=== PATIENT | female | born 1975 | race African-American/Black ===

== ENCOUNTER 2017-03-07 11:29 | Emergency (ER) | payer MEDICAID ==
[~2017-03-07] VITALS: Ht 170.2 cm; Wt 79.0 kg
[~2017-03-07 11:29] MED LIST: DOCU-138 PO; IBUP-1510 PO; LOSA50TA20 PO; OMEG1CAP17 PO
[2017-03-07] MEDS ORDERED: CYCL5TAB PO (11:38)
[2017-03-07] MEDS ORDERED: LISI1TAB9 PO (11:38)
[2017-03-07] MEDS ORDERED: GABA-531 PO (11:38)
[2017-03-07] MEDS ORDERED: SERT25TA74 PO (11:38)
[2017-03-07] MEDS ORDERED: ONDANSETRON HCL 4MG/2ML VIAL IV STA (11:48)
[2017-03-07] MEDS ORDERED: SODIUM CHLORIDE 0.9% 1,000 ML IV ONE (11:48)
[2017-03-07 12:15] LABS: BASOPHILS % 0.4 % (0.0-2.0); DIFFERENTIAL COMMENT 0; EOSINOPHILS % 0.6 % (0.0-5.0); HEMATOCRIT. 38.5 % (36.0-48.0); HEMOGLOBIN. 13.1 g/dL (12.0-16.0); LYMPHOCYTES % 18.4 % (20.0-50.0); MEAN CORPUSCULAR HEMOGLOBIN 27.1 pg (28.0-32.0); MEAN CORPUSCULAR VOLUME 79.7 fL (81.0-99.0); MEAN PLATELET VOLUME 8.4 fl (7.4-10.4); MONOCYTES % 7.1 % (2.0-8.0); NEUTROPHILS % 73.5 % (40.0-76.0); PLATELET 264 x1000/uL (130-400); RED BLOOD CELL COUNT 4.83 mill/uL (4.2-5.4); WHITE BLOOD COUNT 8.4 x1000/uL (4.5-11.0)
[2017-03-07 12:16] LABS: PROTHROMBIN TIME 10.9 sec
[2017-03-07 12:26] LABS: ALANINE AMINOTRANSFERASE 74 IU/L (13-61); ALBUMIN 3.6 g/dL (3.4-5.0); ANION GAP 15; CALCIUM 8.9 mg/dL (8.5-10.1); CARBON DIOXIDE 21 mEq/L (21-32); CHLORIDE 106 mEq/L (98-107); INDEX HEMOLYSI 1 (1-3); INDEX ICTERIC 1 (1-4); INDEX LIPEMIC 1 (1-3); NT PRO B-TYPE NATRIURETIC PEP 20 pg/mL (5-125); TROPONIN I < 0.02 ng/mL (0.00-0.04); UREA NITROGEN BLOOD 11 mg/dL (7-21); eGFR > 60 mL/min (>60)
[2017-03-07] MEDS ORDERED: IOHEXOL-300 100 ML BOTTLE ONE (13:12)
[2017-03-07] MEDS ORDERED: SODIUM CHLORIDE 0.9% 10ML VIAL ONE (13:12)
[2017-03-07 14:52] LABS: CLARITY URINE TURBID (CLEAR); COLOR URINE DARK YELLOW (YELLOW); GLUCOSE URINE NEGATIVE (NEGATIVE); KETONES URINE NEGATIVE (NEGATIVE); LEUKOCYTE ESTERASE URINE 2+ (NEGATIVE); NITRITE URINE POSITIVE (NEGATIVE); OCCULT BLOOD URINE TRACE (NEGATIVE); PH URINE 5.5 (4.5-8.0); PROTEIN URINE 2+ (NEGATIVE); SPECIFIC GRAVITY URINE 1.018 (1.005-1.030)
[2017-03-07 15:10] LABS: HYALINE CASTS URINE 0-5 /lpf; SQUAMOUS EPITHELIAL CELL URINE 3+ /lpf (RARE/1+)
[2017-03-07 15:11] LABS: BACTERIA URINE 4+; RBC URINE 0-2 /hpf (0-2); WBC URINE TNTC /hpf (0-2)
[2017-03-07 16:24] VITALS: BP 152/90
== END 2017-03-07 16:28 | disposition home or self-care (01) ==
LOC: ER 12:02
DX: R42 Dizziness and giddiness (principal); R55 Syncope and collapse; R11.2 Nausea with vomiting, unspecified; I10 Essential (primary) hypertension; E03.9 Hypothyroidism, unspecified; R10.32 Left lower quadrant pain; Z90.710 Acquired absence of both cervix and uterus; Z88.0 Allergy status to penicillin; Z91.018 Allergy to other foods
CPT/HCPCS: 36415; 71010; 74177; 80053; 81001; 81025; 83880; 84484; 85025; 85610; 87077; 87086; 87186; 93005; 96361; 96374; 99285; A4216; J2405; J7030; Q9967; Z7610

== ENCOUNTER 2017-06-01 13:21 | Emergency (ER) | payer MEDICAID ==
[~2017-06-01] VITALS: Ht 175.3 cm; Wt 121.0 kg
[~2017-06-01 13:21] MED LIST changes: +CYCL5TAB PO; +GABA-531 PO; -IBUP-1510 PO; +IBUP-2030 PO; +LISI1TAB9 PO; +SERT25TA74 PO
[2017-06-01] MEDS ORDERED: LIDOCAINE HCL 1% 20ML VIAL (Pyxis) INJ INFIL ONE (16:45)
[2017-06-01] MEDS ORDERED: KETOROLAC 60MG/2ML VIAL IM ONE (18:30)
[2017-06-01 19:10] VITALS: BP 136/73
== END 2017-06-01 19:20 | disposition home or self-care (01) ==
LOC: ER 16:00
DX: L60.0 Ingrowing nail (principal); L03.031 Cellulitis of right toe; I10 Essential (primary) hypertension; Z90.710 Acquired absence of both cervix and uterus; Z88.0 Allergy status to penicillin; Z91.018 Allergy to other foods
CPT/HCPCS: 11750; 96372; 99284; J1885; J3490; X7700; Z7610

== ENCOUNTER 2018-01-02 18:01 | Emergency (ER) | payer MEDICAID ==
[~2018-01-02] VITALS: Ht 165.1 cm; Wt 73.0 kg
[2018-01-02] MEDS ORDERED: LIDOCAINE HCL 1%/EPI 1:200,000 30 ML VIAL MC ONE (21:15)
[2018-01-02] MEDS ORDERED: TETANUS, DIPHTHERIA, PERTUSSIS VAC/PF 0.5ML (>7YR OLD) IM ONE (21:15)
[2018-01-02] MEDS ORDERED: ACETAMINOPHEN 325MG TABLET PO ONE (21:15)
[2018-01-02] MEDS ORDERED: BACITRACIN ZINC OINT UDPKT TOP ONE (21:15)
[2018-01-02] MEDS ORDERED: TRAMADOL 50MG TABLET PO ONE (23:30)
[2018-01-02 23:43] VITALS: BP 138/88
== END 2018-01-02 23:51 | disposition home or self-care (01) ==
LOC: ER 18:21
DX: S01.01XA Laceration without foreign body of scalp, initial encounter (principal); I10 Essential (primary) hypertension; W22.8XXA Striking against or struck by other objects, initial encounter; Y93.89 Activity, other specified; Y92.89 Other specified places as the place of occurrence of the external cause; Y99.8 Other external cause status; Z90.710 Acquired absence of both cervix and uterus; Z88.0 Allergy status to penicillin; Z91.018 Allergy to other foods
CPT/HCPCS: 12002; 90471; 90715; 99284; X7700; Z7610

== ENCOUNTER 2018-01-05 15:18 | Emergency (ER) | payer MEDICAID ==
[~2018-01-05] VITALS: Ht 175.3 cm; Wt 117.0 kg
[2018-01-05 15:46] VITALS: BP 154/94
== END 2018-01-05 17:35 | disposition home or self-care (01) ==
LOC: ER 17:08
DX: Z48.00 Encounter for change or removal of nonsurgical wound dressing (principal); I10 Essential (primary) hypertension; E11.9 Type 2 diabetes mellitus without complications; Z88.0 Allergy status to penicillin
CPT/HCPCS: 99281

== ENCOUNTER 2018-01-12 09:32 | Emergency (ER) | payer MEDICAID ==
[~2018-01-12] VITALS: Ht 175.3 cm; Wt 118.0 kg
[2018-01-12 13:40] VITALS: BP 116/68
== END 2018-01-12 13:51 | disposition home or self-care (01) ==
LOC: ER 11:55
DX: Z48.02 Encounter for removal of sutures (principal); C80.1 Malignant (primary) neoplasm, unspecified; I10 Essential (primary) hypertension; E11.9 Type 2 diabetes mellitus without complications; Z90.710 Acquired absence of both cervix and uterus; Z88.0 Allergy status to penicillin; Z91.018 Allergy to other foods
CPT/HCPCS: 99283; Z7610

== ENCOUNTER 2022-05-23 18:17 | Emergency (ER) | payer MEDICAID ==
[~2022-05-23] VITALS: Ht 180.3 cm; Wt 111.0 kg
[~2022-05-23 18:17] MED LIST changes: +ASPI-1497 PO; +BENA1TAB21 PO; +DOCU100T PO; -GABA-531 PO; +GABA-532 PO; +HC A30CR10 RC; +HYDR-459 PO; +LORA10TA7 PO; -LOSA50TA20 PO; +LOSA50TA41 PO; +METO25TA6 PO; +PANT40TA51 PO
[2022-05-23] MEDS ORDERED: MORPHINE SULFATE 4 MG/ML CPJ (NOT FOR IM USE) IV STA (22:40)
[2022-05-23] MEDS ORDERED: ONDANSETRON HCL 4MG/2ML INJ IV STA (22:40)
[2022-05-23] MEDS ORDERED: SODIUM CHLORIDE 0.9% 1,000 ML IV ONE (22:45)
[2022-05-23 23:28] LABS: BASOPHILS % 0.4 % (0.0-2.0); CHLORIDE 107 mEq/L (98-107); EOSINOPHILS % 1.2 % (0.0-5.0); HEMATOCRIT. 34.3 % (36.0-48.0); HEMOGLOBIN. 11.6 g/dL (12.0-16.0); LYMPHOCYTES % 48.3 % (20.0-50.0); MEAN CORPUSCULAR HEMOGLOBIN 29.2 pg (28.0-32.0); MEAN CORPUSCULAR VOLUME 86.2 fL (81.0-99.0); MONOCYTES % 6.9 % (2.0-8.0); NEUTROPHILS % 43.2 % (40.0-76.0); PLATELET 246 x1000/uL (130-400); RED BLOOD CELL COUNT 3.97 mill/uL (4.2-5.4); RED CELL DISTRIBUTION WIDTH 14.8 % (11.6-14.6)
[2022-05-24] MEDS ORDERED: IOHEXOL-300 100 ML BOTTLE ONE (00:05)
[2022-05-24 02:52] LABS: CLARITY URINE CLEAR (CLEAR); COLOR URINE YELLOW (YELLOW); KETONES URINE NEGATIVE (NEGATIVE); LEUKOCYTE ESTERASE URINE TRACE (NEGATIVE); NITRITE URINE POSITIVE (NEGATIVE); OCCULT BLOOD URINE 1+ (NEGATIVE); PH URINE 5.5 (4.5-8.0); PROTEIN URINE NEGATIVE (NEGATIVE); UROBILINOGEN URINE 0.2 E.U./dL (0.2-1.0)
[2022-05-24] MEDS ORDERED: LEVOFLOXACIN 750MG PREMIX 150 ML IV NR (04:45)
[2022-05-24] MEDS ORDERED: LEVO750T46 MT (05:14)
[2022-05-24] MEDS ORDERED: MORPHINE SULFATE 4 MG/ML CPJ (NOT FOR IM USE) IV ONE (05:15)
[2022-05-24 05:58] VITALS: BP 113/72
== END 2022-05-24 06:11 | disposition home or self-care (01) ==
LOC: ER 18:17
DX: K80.20 Calculus of gallbladder without cholecystitis without obstruction (principal); N39.0 Urinary tract infection, site not specified; C56.9 Malignant neoplasm of unspecified ovary; I10 Essential (primary) hypertension; E11.9 Type 2 diabetes mellitus without complications; Z98.890 Other specified postprocedural states; Z90.710 Acquired absence of both cervix and uterus; Z79.82 Long term (current) use of aspirin; Z91.018 Allergy to other foods; Z88.0 Allergy status to penicillin
CPT/HCPCS: 36415; 74177; 80053; 81003; 83605; 83690; 85025; 93005; 96361; 96365; 96375; 96376; 99285; J1956; J2270; J2405; J7030; Q9967

== ENCOUNTER 2025-05-11 10:27 | Emergency (ER) | payer MEDICAID ==
[~2025-05-11] VITALS: Ht 165.1 cm; Wt 91.0 kg
[~2025-05-11 10:27] MED LIST changes: +ALBU6.7H3 INH; +ASPI-1406 PO; +ASPI-1497 MT; +AZEL6DRO5 EACHEYE; +BACL-141 PO; +CETI10CA2 PO; +CLOP-31 MT; -CYCL5TAB PO; +DIPH25TA24 PO; -DOCU-138 PO; +DOCU-422 PO; -DOCU100T PO; +EZET10TA81 PO; +FLUT1BLS3 INH; -GABA-532 PO; +GEMF600T90 PO; -HC A30CR10 RC; +HYDR-3735 PO; -HYDR-459 PO; -LISI1TAB9 PO; -LOSA50TA41 PO; +METF-414 PO; +METO-539 PO; -METO25TA6 PO; +MULT-1146 MT; -OMEG1CAP17 PO; -PANT40TA51 PO; +PARO10TA74 PO; +PRAV20TA57 PO; +PROT40 PO; -SERT25TA74 PO; +SULF1TAB48 MT
[2025-05-11 10:31] VITALS: TEMP 36.9; O2SAT 99
[2025-05-11] MEDS: KETOROLAC 30MG/ML VIAL IM ONE (10:56)
[2025-05-11] MEDS ORDERED: DICL100G58 TP (11:41)
[2025-05-11] MEDS ORDERED: IBUP-2030 PO (11:54)
[2025-05-11 11:58] VITALS: O2SAT 97
[2025-05-11 12:16] VITALS: BP 96/61; PULSE 83; RESP 16
[2025-05-11] MEDS: HYDROCODONE/ACETAMINOPHEN 5/325MG TABLET PO ONE (12:16)
== END 2025-05-11 11:59 | disposition home or self-care (01) ==
LOC: ER 10:27
DX: M19.072 Primary osteoarthritis, left ankle and foot (principal); E11.9 Type 2 diabetes mellitus without complications; I11.0 Hypertensive heart disease with heart failure; I50.9 Heart failure, unspecified; Z79.02 Long term (current) use of antithrombotics/antiplatelets; Z79.82 Long term (current) use of aspirin; Z79.84 Long term (current) use of oral hypoglycemic drugs; Z79.899 Other long term (current) drug therapy; Z88.0 Allergy status to penicillin; Z88.1 Allergy status to other antibiotic agents; Z90.710 Acquired absence of both cervix and uterus; Z95.1 Presence of aortocoronary bypass graft
CPT/HCPCS: 99283; 73630; 96372; J1885